=== PATIENT | female | born 1955 | race Caucasian/White ===

== ENCOUNTER 2023-12-19 04:45 | Emergency (ER) | payer MEDICARE, SELFPAY ==
[2023-12-19] VITALS (63 sets, daily range): BP systolic 138–232; BP diastolic 77–113; PULSE 69–90; RESP 15–31; TEMP 36.1–36.8; O2SAT 87–98
--- NOTE | ~2023-12-19 | CT_ITS ---
EXAMINATION: CT brain wo con DATE: 12/19/2023 04:59 INDICATION: Left-sided weakness. History of stroke. TECHNIQUE: Computed tomography (CT) of the head was performed without intravenous contrast. The mA wa s adjusted according to patient size. Iterative reconstruction technique was employed. Exam dose: 83 2.33 mGy-cm total exam DLP. COMPARISON: None FINDINGS: Examination is limited at the posterior fossa by extensive streak artifact from tooth filli ngs. No intracranial mass lesion or hemorrhage or cerebrovascular accident is evident. No midline aman ft or mass effect. There is nonspecific diminished attenuation of the cerebral white matter, likely due to chronic small vessel ischemic changes. No subdural or epidural hematoma. There is soft tissue thickening in the left frontoethmoid area and patchy soft tissue thickening in t he ethmoid air cells. The paranasal sinuses and mastoid air cells otherwise are unremarkable. No fracture or bone destruction of the cranial vault. IMPRESSION: Limited examination; no acute intracranial finding Reviewed, dictated and finalized at [facility]. Reviewed, dictated and finalized at [facility].
--- NOTE | ~2023-12-19 | XR_ITS ---
XR chest 1V portable DATE: 12/19/2023 05:37 INDICATION: Left-sided weakness TECHNIQUE: Portable supine AP view on 12/19/2023 at 0544 hours COMPARISON: None FINDINGS: Heart size appears within normal range. There is aortic calcification, ectasia and unfoldin g. No hilar or mediastinal enlargement. No pulmonary infiltrate or consolidation, pleural effusion or pulmonary vascular congestion or pneumo thorax is detected. Mild bilateral apical capping. IMPRESSION: No active cardiopulmonary disease Reviewed, dictated and finalized at location [facility].
--- NOTE | ~2023-12-19 | CT_ITS ---
EXAMINATION: CTA brain carotid DATE: 12/19/2023 06:24 INDICATION: Left hemiparesis. TECHNIQUE: Computed tomographic angiography (CTA) of the head was performed with 100 mL Omnipaque-350 intravenous contrast. CTA of the neck was performed with intravenous contrast. Automated exposure co ntrol and iterative reconstruction technique were employed. The dose-length product was 1208.84 mGy-c m. Maximum intensity projection and volume rendered 3D-reconstructions were created by the technologi st on a separate workstation. COMPARISON: Head CT 12/19/2023 FINDINGS: HEAD CTA: There are scattered areas of low attenuation in the cerebral white matter. There is no intr acranial hemorrhage, acute infarction, or abnormal intracranial mass lesion. The ventricles are amara l in size. The orbits are normal. There is mild mucosal thickening in the paranasal sinuses. The mast oid air cells are normal. The vertebral arteries are codominant. There is no significant stenosis of basilar artery or the posterior cerebral arteries. The posterior communicating arteries are normal. T here is no significant stenosis of the intracranial internal carotid arteries or anterior or middle c erebral arteries. Anterior communicating artery is normal. There is no aneurysm. NECK CTA: Calcified left lung nodules and calcified left hilar lymph nodes are consistent with old gr anulomatous disease. There is mild scarring at the lung apices. There are no pathologically enlarged lymph nodes. There is no significant stenosis of the vertebral arteries. There is mild plaque in the proximal internal carotid arteries. There is 0% stenosis of the proximal right internal carotid arter y relative to normal distal artery lumen diameter (NASCET criteria). There is 0% stenosis of the prox imal left internal carotid artery relative to normal distal artery lumen diameter. There is motion ar tifact involving brachiocephalic trunk. There is severe cervical spondylosis. IMPRESSION: 1. Moderate nonspecific cerebral white matter disease, which likely represents chronic small vessel i schemic disease. 2. No aneurysm or significant intracranial canal stenosis. 3. 0% stenosis of the proximal internal carotid arteries relative to normal distal artery lumen diame ters (NASCET criteria). Reviewed, dictated and finalized at location E. IMPRESSION: 1. Moderate nonspecific cerebral white matter disease, which likely represents chronic small vessel ischemic disease. 2. No aneurysm or significant intracranial canal stenosis. 3. 0% stenosis of the proximal internal carotid arteries relative to normal dis polo artery lumen diameters (NASCET criteria).
--- NOTE | 2023-12-19 04:53 | ECG_ITS ---
[address] Test Date: 2023-12-19 Pat Name: Caitlyn Alberto Department: Room: Gender: F Control Officer: BIANKA : 1955 Requested By: Corbin Mittal Order Number: [id number] Reading MD: Kisha Brock M.D. Measurements Intervals [place] Rate: 85 P: 72 CA: 185 QRS: 71 QRSD: 113 T: 70 QT: 407 QTc: 486 Interpretive Statements SINUS RHYTHM POSSIBLE LEFT ATRIAL ENLARGEMENT [-0.1mV P-WAVE IN V1/V2] INCOMPLETE RIGHT BUNDLE BRANCH BLOCK [90+ ms QRS DURATION, TERMINAL R IN V1/V2, 40+ ms S IN I/aVL/V4/V5/V6] MODERATE ST DEPRESSION [0.05+ mV ST DEPRESSION] No previous ECG available for comparison Electronically Signed On 12-22-2023 14:10:48 CDT by Kisha Brock M.D.
--- NOTE | 2023-12-19 04:55 | PC.NURSE ---
patient returned to the room via stretcher. daughter at the bedside
--- NOTE | 2023-12-19 05:05 | ED.NEUROSD ---
HPI - Neuro Symptoms/Deficit General Chief Complaint: Neuro Symptoms/Deficit <Corbin Nettles MD - Last Filed: 12/19/23 09:23> Stated Complaint: Stroke Symptoms <Corbin Nettles MD - Last Filed: 12/19/23 09:23> Time Seen by Provider: 12/19/23 04:53 <Corbin Nettles MD - Last Filed: 12/19/23 09:23> Source: patient, family and EMS <Corbin Nettles MD - Last Filed: 12/19/23 09:23> Mode of arrival: EMS <Corbin Nettles MD - Last Filed: 12/19/23 09:23> Limitations: clinical condition <Corbin Nettles MD - Last Filed: 12/19/23 09:23> History of Present Illness HPI Narrative: patient is a 68-year-old female with a stroke 1 month ago with unclear intervention. This stroke affected her left side with minimal residual. She presents with last known well at 2:30 a.m. this morning taking a shower and then proceeded to collapse on her bed with twitching. Last known well 2:30 a.m.. Family knew that she went and took a shower on her own without difficulty. Somewhere after the shower she became difficulty with motor and sensory. EMS was called and she was brought to the ER. CT head was done and no acute process seen. NIH score upon entry is 9. GCS is 14. Family would like her to go to [facility] and we will call and talk to the neurologist at this time. The only abnormality that is relative contraindication is her shaking like activity but she is awake during the event and it is not a seizure witnessed. She initially had left face weakness that has resolved at this time but the left upper and lower extremity are significantly diminished. There is a discussion about her having a seizure medication which I do not see in her bag of medicine as well as a blood thinner after her stroke. First documentation about tPA and the patient had a stroke 1 month ago which is less than 90 days and that is a absolute contraindication for tPA. She also has very very high blood pressure and we are working on that at this time but it is also a contraindication. Further she is on a blood thinner that she has not brought at this time and we are not aware of which blood thinner she is taking. I discussed the case with Neurology senior resident at [facility] and we agreed together that this is not a candidate for tPA due to all these factors. They wanted a CTA of the head and neck which we will do to look for large vessel occlusion or LVO to consider thrombectomy. If the CTA is negative, then the patient will need routine stroke rehabilitation. If it is positive then we will transfer to [place] for thrombectomy considerations. <Corbin Nettles MD - Last Filed: 12/19/23 09:23> Onset (ago): hour(s) (3) <Corbin Nettles MD - Last Filed: 12/19/23 09:23> Timing confirmed by: family member <Corbin Nettles MD - Last Filed: 12/19/23 09:23> Location: speech, left face, dysarthria, left arm, left leg and altered <Corbin Nettles MD - Last Filed: 12/19/23 09:23> History of same: Yes <Corbin Nettles MD - Last Filed: 12/19/23 09:23> Severity: moderate <Corbin Nettles MD - Last Filed: 12/19/23 09:23> Quality: weak <Corbin Nettles MD - Last Filed: 12/19/23 09:23> Relieving factors: none <Corbin Nettles MD - Last Filed: 12/19/23 09:23> Exacerbating factors: none <Corbin Nettles MD - Last Filed: 12/19/23 09:23> Context: sudden onset <Corbin Nettles MD - Last Filed: 12/19/23 09:23> On Anticoagulants: No ( Unknown blood thinner from last CVA Plavix?) <Corbin Nettles MD - Last Filed: 12/19/23 09:23> Associated symptoms: confusion, seizures and weakness <Corbin Nettles MD - Last Filed: 12/19/23 09:23> Treatments Prior to Arrival: none <Corbin Nettles MD - Last Filed: 12/19/23 09:23> Related Data Allergies/Adverse Reactions: Allergies Allergy/AdvReac Type Severity Reaction Status Date / Time No Known Allergi
[2023-12-19] MEDS: LABETALOL HCL INJ 100 MG/20 ML VIAL 10 MG IV PUSH ×2 (05:10→05:33)
[2023-12-19 05:12] LABS: Basophils Absolute Auto 0.06 K/mm3 (0.00-0.10); Basophils Percent Auto 0.3 % (0.0-1.0); Eosinophils Absolute Auto 0.15 K/mm3 (0.02-0.50); Eosinophils Percent Auto 0.8 % (1.0-6.0); Hematocrit 41.1 % (35.0-42.0); Hemoglobin 13.5 g/dL (11.7-13.8); Immature Granulocyte Absolute 0.16 K/mm3 (0.00-0.00); Immature Granulocyte Percent A 0.9 % (0.0-0.0); Lymphocytes Absolute Auto 3.34 K/mm3 (1.10-4.50); Lymphocytes Percent Auto 18.7 % (18.0-42.0); Mean Corpuscular HGB Conc 32.8 g/dL (32-36); Mean Corpuscular Hemoglobin 30.7 pg (27.0-31.0); Mean Corpuscular Volume 93.4 fL (78.0-102.0); Mean Platelet Volume 10.7 fl (9.2-11.8); Monocytes Absolute Auto 0.84 K/mm3 (0.10-0.90); Monocytes Percent Auto 4.7 % (2.0-11.0); Neutrophils Absolute Auto 13.34 K/mm3 (1.70-7.20); Neutrophils Percent Auto 74.6 % (50.0-70.0); Platelet Count Result 366 K/mm3 (150-420); Red Cell Distribution Width 12.9 % (11.6-14.4); White Blood Count 17.9 K/mm3 (4.8-10.8)
[2023-12-19 05:25] LABS: Partial Thromboplastin Time 25.8 Sec (23.9-30.70)
[2023-12-19 05:29] LABS: Alanine Aminotransferase 19 U/L (14-59); Albumin Level 3.8 g/dL (3.4-5.0); Alkaline Phosphatase 101 U/L (46-116); Anion Gap 10 mmol/L (4-12); Aspartate Amino Transferase 20 U/L (15-37); Bilirubin,Total 0.5 mg/dL (0.00-1.00); Blood Urea Nitrogen 6 mg/dL (7-18); Calcium 9.3 mg/dL (8.5-10.1); Carbon Dioxide 29 mmol/L (21-32); Chloride 97 mmol/L (98-108); Estimated CRCL calculation 56 ml/min; Estimated Glomerular Filt Rate > 60; Glucose 159 mg/dL (70-99); Osmolality Calculated 282 mOsm/kg (285-295); Potassium 3.1 mmol/L (3.5-5.1); Sodium 136 mmol/L (136-145); Total Protein 7.7 g/dL (6.4-8.2); Troponin I 5.4 ng/L (0.00-60.4)
--- NOTE | 2023-12-19 05:30 | PC.NURSE ---
NIH stroke scale completed by ERP. Pt scored 9, family requests transfer to [place], call placed to [place] stroke team.
[2023-12-19] MEDS: niCARdipine 20 MG/200 ML 20 MG/200 ML BAG 50 MG IV CONT (05:46)
--- NOTE | 2023-12-19 06:07 | PC.NURSE ---
patient transported to ct via stretcher
--- NOTE | 2023-12-19 07:15 | PC.NURSE ---
ERP Dr Nettles spoke c pts daughter and POC discussed for neurology transfer. No intervention will be done per [facility] stroke team Pts daughter wants transfer to [facility] neurology for admit.
--- NOTE | 2023-12-19 07:17 | PC.NURSE ---
Report given to Russ Schwartz. Pt resting, VSS NSR on monitor.
--- NOTE | 2023-12-19 07:29 | PC.NURSE ---
0710 report from jamir nino. resumed care at this time. daughter chuck going to run errands. introduced self to pt. pt able to speak clearly, tell me her name, denies any pain. able to tell me # of raised fingers accurately. call west in reach,m ice chip x1 to wet mouth . tolerated well.
[2023-12-19 07:59] LABS: Appearance Urine Clear (Clear); Bilirubin Urine Negative (Negative); Blood Urine Negative (Negative); Color Urine Light Yellow (Yellow); Glucose Urine UA Negative (Negative); Ketones Urine Negative (Negative); Leukocyte Esterase Ur Negative LEU/UL (Negative); Nitrate Urine Negative (Negative); Protein Urine Negative (Negative); Specific Grav Ur <= 1.005 (1.010-1.020); Urobilinogen Urine 0.2 mg/dL (0.2-1.0)
[2023-12-19 08:01] LABS: Add Urine Microscopic? NO
--- NOTE | 2023-12-19 08:02 | PC.NURSE ---
pt sleeping at this time. respirations even and unlabored.
[2023-12-19] MEDS: ASPIRIN 81 MG CHEWABLE TABLET PO (08:19)
[2023-12-19] MEDS: levETIRAcetam 1000MG/NACL100ML 1,000 MG/100 ML BAG 400 MG IVPB (08:22)
[2023-12-19] MEDS: KCL 20 MEQ/SW 100 ML 100 ML 50 MEQ IVPB (08:23)
[2023-12-19] MEDS: SODIUM CHLORIDE 0.9% IV 1,000 ML 150 ML IV CONT (08:24)
--- NOTE | 2023-12-19 08:57 | PC.NURSE ---
pt alert, visit from brother deisy gonsalves. pt speaking clearly. has had improvement with movement to left arm and left leg. new nihss scale completed
--- NOTE | 2023-12-19 11:52 | PC.NURSE ---
Addendum entered by Efren Healy RN 12/19/23 11:56: complete note below: call to [facility] bed placement cancelled. spoke with maren Original Note: call to [facility] transfer center, spoke with delfina, bed placement at [facility] cancelled. call to [facility] transfer center, spoke with maren, bed placement at [facility]
--- NOTE | 2023-12-19 11:57 | PC.NURSE ---
daughter, chuck notified of pt departure to [place] and bed assignment.
== END 2023-12-19 11:51 | disposition short-term general hospital (02) ==
PROVIDERS: Emergency Medicine; Emergency Provider Internal Medicine Critical Care Medicine
DX: I63.9 Cerebral infarction, unspecified (principal); R29.711 NIHSS score 11; D72.829 Elevated white blood cell count, unspecified; I16.0 Hypertensive urgency; G40.909 Epilepsy, unspecified, not intractable, without status epilepticus; Z86.73 Personal history of transient ischemic attack (TIA), and cerebral infarction without residual deficits
CPT/HCPCS: 36415; 70450; 70496; 70498; 71045; 80053; 81003; 84484; 85025; 85610; 85730; 93005; 96365; 96366; 96367; 96368; 96375; 99285; A9270; J1953; J2404; J3480; J7030; Q9967

== ENCOUNTER 2023-12-19 13:12 | Inpatient (IN) | payer OTHER, SELFPAY ==
--- NOTE | ~2023-12-19 | XR_ITS ---
EXAMINATION: XR femur RT min 2V DATE: 12/21/2023 13:30 INDICATION: Foreign body. MRI clearance. TECHNIQUE: 2 views of right femur on 4 radiographs were obtained. COMPARISON: None. FINDINGS: Bone alignment is normal. No fracture. There is mild knee joint osteoarthritis. No knee elizabeth nt effusion. IMPRESSION: 1. No radiopaque foreign body. Reviewed, dictated and finalized at [facility].
--- NOTE | ~2023-12-19 | XR_ITS ---
EXAMINATION: XR patella LT DATE: 12/21/2023 13:30 INDICATION: Foreign body. MRI clearance. TECHNIQUE: 2 views of left patella were obtained. COMPARISON: None. FINDINGS: Bone alignment is normal. No fracture. There is mild osteoarthritis of patellofemoral senait rtment. No knee joint effusion. IMPRESSION: 1. No radiopaque foreign body. Reviewed, dictated and finalized at location [facility].
--- NOTE | ~2023-12-19 | XR_ITS ---
EXAMINATION: XR tibia fibula LT 2V DATE: 12/21/2023 13:30 INDICATION: Foreign body. MRI clearance. TECHNIQUE: 2 views of left tibia and fibula were obtained. COMPARISON: None. FINDINGS: Bone alignment is normal. No fracture. There is mild left knee osteoarthritis. IMPRESSION: 1. No radiopaque foreign body. Reviewed, dictated and finalized at location [facility].
--- NOTE | ~2023-12-19 | XR_ITS ---
EXAMINATION: XR femur LT min 2V DATE: 12/21/2023 13:30 INDICATION: Foreign body. MRI clearance. TECHNIQUE: 2 views of left femur on 4 radiographs were obtained. COMPARISON: None. FINDINGS: Bone alignment is normal. No fracture. There is mild osteoarthritis of patellofemoral senait rtment of left knee. No knee joint effusion. IMPRESSION: 1. No radiopaque foreign body. Reviewed, dictated and finalized at location [facility].
--- NOTE | ~2023-12-19 | XR_ITS ---
EXAMINATION: XR tibia fibula RT 2V DATE: 12/21/2023 13:30 INDICATION: Foreign body. MRI clearance. TECHNIQUE: 2 views of right tibia and fibula were obtained. COMPARISON: None. FINDINGS: Bone alignment is normal. No fracture. There is mild right knee osteoarthritis. IMPRESSION: 1. No radiopaque foreign body. Reviewed, dictated and finalized at location [facility].
--- NOTE | ~2023-12-19 | XR_ITS ---
EXAMINATION: XR patella RT DATE: 12/21/2023 13:30 INDICATION: Foreign body. MRI clearance. TECHNIQUE: 2 views of right patella were obtained. COMPARISON: None. FINDINGS: Bone alignment is normal. No fracture. There is mild osteoarthritis of patellofemoral senait rtment. No knee joint effusion. IMPRESSION: 1. No radiopaque foreign body. Reviewed, dictated and finalized at location [facility].
--- NOTE | ~2023-12-19 | MR_ITS ---
EXAMINATION: MR brain/brain stem wo con DATE: 12/21/2023 15:38 INDICATION: Right-sided cerebrovascular accident. TECHNIQUE: Magnetic resonance imaging (MRI) of the brain and brainstem was performed without intraven ous contrast. COMPARISON: Head CT 12/19/2023 FINDINGS: There are scattered areas of nonspecific increased T2-weighted signal intensity in the cere bral white matter and loyda. There is no intracranial hemorrhage, acute infarction, or abnormal intrac ranial mass lesion. The ventricles are normal in size. The orbits are normal. There is mild mucosal t hickening in the paranasal sinuses. The mastoid air cells are normal. IMPRESSION: 1. Moderate nonspecific cerebral white matter disease and pontine disease, which likely represents ch ronic small vessel ischemic disease. Reviewed, dictated and finalized at location [facility]. IMPRESSION: 1. Moderate nonspecific cerebral white matter disease and pontine disease, whic h likely represents chronic small vessel ischemic disease.
--- NOTE | ~2023-12-19 | XR_ITS ---
Portable chest x-ray Comparison: 12/19/2023 Clinical History: Hyponatremia Findings: Calcified left midlung granuloma present. Lungs are otherwise clear. Possible COPD. Cardi omediastinal silhouette is stable. Bones and soft tissues are unremarkable. Impression: No acute abnormality evident. Suspected COPD. Reviewed, dictated and finalized at location . Impression: No acute abnormality evident. Suspected COPD.
[2023-12-19 12:43] VITALS: BP 173/83; PULSE 76; RESP 20; TEMP 36.1; O2SAT 93
--- NOTE | 2023-12-19 13:28 | PM.IMHP ---
H&P: HPI History of Present Illness Date/Time: 12/19/23 13:30 Chief Complaint: Stroke. Narrative: This is a 68-year-old female with ischemic stroke last month with minimal residual left-sided weakness, seizures, and hypertension who is being directly admitted to the telemetry floor from the emergency department at the [facility] for neurology consultation due to concerns for stroke. She was seen last in her usual state of health at about 02:30 before she went to take a shower. Later family members found her lying in the position in bed with garbled speech and left-sided weakness with occasional twitching on the left side. On arrival to the ED at 06:30 her NIH stroke score was 11 (unable to answer both questions, gaze palsy, left upper extremity drift, left lower extremity unable to resist gravity, dysarthria, moderate aphasia, and partial neglect). Blood pressure was as high as 224/101 for which she received IV labetalol x2 with improvement. ED physician spoke with the stroke team at [place] and it was decided that she would not be a candidate for tPA given recent ischemic stroke within last month. CTA of the head and neck did not show evidence of stroke and there was no large vessel occlusion. Transfer was initiated to [place] for neurology consultation. NIH stroke score was 9 at the time of transfer. Her symptoms continue to improve any only complaint she has at the time my evaluation is of a slight headache. Left-sided weakness is now similar to that she has experienced since her stroke last month.She denies vertigo, vision changes, facial droop, difficulty swallowing, chest pain, palpitations, and sensations of racing heart. Review of Systems Review of Systems: 12 systems were reviewed and are negative except for as per HPI. [facility] Past Medical History Medical History (Updated 12/19/23 @ 22:30 by Bethany Watson PA-C) Arthritis Hypertension Ischemic stroke Seizure disorder Social History Social History (Updated 12/19/23 @ 22:23 by Bethany Watson PA-C) Social History: Surrogate medical decision maker: Imani Penn, daughter. Code status: Full code. Smoking status: Never smoker Alcohol intake: former Substance use: former Substance use type: does not use Last use: 7 months ago Do You Feel Safe in your Home?: Yes Lack of Transportation: No Lack of Food: Never True Current Housing: I Have Housing Concerned About Future Housing: No Difficulty Paying Gas/Electric Bills: No Difficulty Paying for Meds: No Currently Unemployed: No Education: High School Diploma/GED Difficulty w/ Childcare or Family Care: No Spiritual care concerns: No Meds Home Medications and Allergies Home Medications Medication Instructions Recorded Confirmed Type aripiprazole 2 mg tablet 2 mg PO DAILY 12/19/23 12/19/23 History atorvastatin 40 mg tablet 40 mg PO DAILY 12/19/23 12/19/23 History fluoxetine 10 mg capsule 10 mg PO DAILY 12/19/23 12/19/23 History fluoxetine 20 mg capsule 20 mg PO DAILY 12/19/23 12/19/23 History levetiracetam 500 mg tablet 500 mg PO BID 12/19/23 12/19/23 History levothyroxine 88 mcg tablet 88 mcg PO DAILY 12/19/23 12/19/23 History lisinopril 20 mg tablet 20 mg PO DAILY 12/19/23 12/19/23 History metoprolol succinate 25 mg 20 mg PO BID 12/19/23 12/19/23 History tablet,extended release 24 hr naltrexone 50 mg tablet 75 mg PO DAILY 12/19/23 12/19/23 History Allergies Allergy/AdvReac Type Severity Reaction Status Date / Time No Known Allergies Allergy Verified 12/19/23 05:29 Exam Narrative: General: Nontoxic-appearing female in the semi-Beltran position in bed. Weight: 57.2 kg. BMI: 20.4. HEENT: Normocephalic, atraumatic. PERRL, EOMI. Sclera anicteric. Conjunctiva mildly injected. Oral mucosa moist. Neck: Supple. No carotid bruits. Respiratory: Lungs are clear to auscultation bilaterally. Cardiovascular: Regular rate and rhythm with
[2023-12-19 13:42] VITALS: BMI 20.3
[2023-12-19 15:01] LABS: Anion Gap 10 mmol/L (4-12); Blood Urea Nitrogen 5 mg/dL (7-17); Calcium 8.9 mg/dL (8.4-10.2); Carbon Dioxide 26 mmol/L (22-30); Chloride 96 mmol/L (98-107); Estimated CRCL calculation 96 ml/min; Estimated Glomerular Filt Rate > 60; Glucose 119 mg/dL (65-110); Magnesium 1.3 mg/dL (1.6-2.3); Potassium 3.1 mmol/L (3.4-5.0); Sodium 132 mmol/L (137-145)
--- NOTE | 2023-12-19 15:14 | WPDNEURCNPN ---
Assessment and Plan Assessment and plan (1) Cerebrovascular accident: Qualifiers: CVA mechanism: unspecified Qualified Code(s): I63.9 - Cerebral infarction, unspecified Code(s): I63.9 - Cerebral infarction, unspecified Status: Acute (2) Seizure disorder: Code(s): G40.909 - Epilepsy, unspecified, not intractable, without status epilepticus Status: Acute Plan 1. Status post right hemispheric stroke about a month ago with residual left-sided neurological signs but patient had been on multiple medications which include airy pupils old 2mg daily, atorvastatin 40mg daily, fluoxetine 10mg daily, and 20mg daily, levetiracetam 500mg p.o. b.i.d. levothyroxine 88mcg daily lisinopril 20mg daily metoprolol 25mg daily and naltrexone 50mg tablet 75mg daily, considering he CTA does not show any major vessel involvement, no aneurysm or significant intracranial stenosis I will put her on aspirin 81mg daily, 2. Considering the remote possibility of the seizure which is also likely as the initial description was given levetiracetam 500mg twice a day can be continued while she is here with seizure precautions. 3. Question has been raised by the radiologist bandlike flap in the proximal right brachiocephalic artery which reflects possible artifact from contrast versus focal dissection needs to be clarified late room if necessary we can repeat the CTA. 4. Possibility of unwitnessed seizure is likely but patient is already taking Keppra while here we can carry out the seizure precautions and if necessary we can give her extra Keppra that is 750mg b.i.d. 5. MRI cannot be done because of the alcohol monitoring brace family is trying to approach them take that of because it was placed in the different state 6. I have advised the family she is not in any emergency right now but definitely if we have to get the MRI that needs to be pursued further. Consult date: 12/19/23 HPI: Caitlyn Alberto is a 68 year old female Admitted to the hospital on transfer from other institutions with information that she had a stroke about a month ago which affected the left side of her body , when she ended up having a tPA but then she presented to the hospital with information that while she was taking a shower she collapsed and was noted to have twitching in her bed. This time she she last known well was around 2:30 a.m. family was aware that she went and took a shower on her own without difficulties but after the shower she has some difficulties with the sensory and motor function EMS were called to the scene she was brought to the ER and CT scan of the head was done which was negative for the bleed or any major stroke her NIH score upon entry was 9 GCS was 14 family wanted her to go to [facility] to be seen by the neurologist there there was no history of witnessed seizure and there was a question raised about the medication for the control of the seizure when she had a stroke about a month ago she did receive tPA and obviously this is a contraindication for the end of the tPA within [id number]? she was also noted to have very high blood pressure and she was also on blood thinner and was not sure what blood thinner she was taking Pearl how all these discussion was made with the [facility] Neurology Service they wanted only CTA of the head and neck documented any large vessel involvement to consider thrombectomy but her CTA was negative and the suggested she will need the routine rehabilitation consideration was given to the possibility of a focal seizure core the documented recent stroke patient is already receiving the Keppra. To complicate all the situation she has a monitor on her leg which was placed out of the state for the possibility of the drinking monitoring. She is not allergic to any medications PMFSH Past Medical History Medical History (Updated 12/19/23 @ 14:13 by Bethany Watson PA-C) Arthritis Hypertension Status post tPA
[2023-12-19 15:27] VITALS: BP 164/79; PULSE 70; RESP 18; TEMP 36.2; O2SAT 98
[2023-12-19 15:32] LABS: Hemoglobin A1C 5.4 % (<5.7)
[2023-12-19] MEDS: FLUoxetine HCL 10 MG CAPSULE PO (15:32)
[2023-12-19] MEDS: FLUoxetine HCL 20 MG CAPSULE PO (15:32)
[2023-12-19] MEDS: ATORVASTATIN 40 MG TABLET PO (15:32)
[2023-12-19] MEDS: ARIPiprazole 2 MG TABLET PO (15:32)
[2023-12-19 16:00] VITALS: PULSE 70
[2023-12-19 19:56] VITALS: BP 149/70; PULSE 66; RESP 20; TEMP 36.8; O2SAT 99
[2023-12-19 20:00] VITALS: PULSE 66; RESP 20; O2SAT 99
[2023-12-19] MEDS: ACETAMINOPHEN 325 MG TABLET 650 MG PO ×2 (20:31→23:43)
[2023-12-19] MEDS: levETIRAcetam Tablet 250 MG, levETIRAcetam Tablet 500 MG 750 MG PO (20:32)
[2023-12-19 21:03] LABS: Glucose Point of Care 128 mg/dl (65-105)
[2023-12-19 23:29] VITALS: BP 187/83; PULSE 65; RESP 18; TEMP 36.3; O2SAT 98
[2023-12-19] MEDS: SODIUM CHLORIDE 0.9% IV 1,000 ML 100 ML IV CONT (23:43)
[2023-12-19] MEDS: POTASSIUM CHLORIDE 20 MEQ ER TABLET 40 MEQ PO (23:44)
[2023-12-19] MEDS: MAGNESIUM SULF 2 GM/WATER 50ML 2 GM/50 ML BAG IVPB (23:44)
[2023-12-20] VITALS (10 sets, daily range): BP systolic 140–193; BP diastolic 65–85; PULSE 57–78; RESP 16–20; TEMP 36.7–37.1; O2SAT 96–99
[2023-12-20 05:24] LABS: Hemoglobin 13.1 g/dL (12.0-15.0); Mean Corpuscular HGB Conc 33.6 g/dl (32-36); Mean Corpuscular Volume 92.4 fl (80-100); Mean Platelet Volume 10.8 fl (7.4-10.4); Platelet Count Result 356 k/mm3 (150-375); Red Blood Count 4.22 M/mm3 (4.2-5.4); Red Cell Distribution Width 13.1 % (11.5-14.5); White Blood Count 22.7 K/mm3 (4.5-10.0)
[2023-12-20 05:41] LABS: Anion Gap 6 mmol/L (4-12); Blood Urea Nitrogen 11 mg/dL (7-17); Calcium 9.2 mg/dL (8.4-10.2); Carbon Dioxide 28 mmol/L (22-30); Chloride 96 mmol/L (98-107); Estimated CRCL calculation 79 ml/min; Estimated Glomerular Filt Rate > 60; Glucose 112 mg/dL (65-110); Magnesium 2.2 mg/dL (1.6-2.3); Potassium 3.4 mmol/L (3.4-5.0); Sodium 130 mmol/L (137-145)
[2023-12-20] MEDS: LEVOTHYROXINE SODIUM 88 MCG TABLET PO (06:02)
[2023-12-20] MEDS: ATORVASTATIN 40 MG TABLET PO (10:12)
[2023-12-20] MEDS: ARIPiprazole 2 MG TABLET PO (10:12)
[2023-12-20] MEDS: ACETAMINOPHEN 325 MG TABLET 650 MG PO ×2 (10:12→20:43)
[2023-12-20] MEDS: ASPIRIN 81 MG ENTERIC TABLET PO (10:13)
[2023-12-20] MEDS: lisinopriL 20 MG TABLET PO (10:13)
[2023-12-20] MEDS: levETIRAcetam Tablet 250 MG, levETIRAcetam Tablet 500 MG 750 MG PO ×2 (10:13→20:43)
[2023-12-20] MEDS: FLUoxetine HCL 10 MG CAPSULE PO (10:13)
[2023-12-20] MEDS: FLUoxetine HCL 20 MG CAPSULE PO (10:14)
--- NOTE | 2023-12-20 14:01 | PM.IMPN ---
Progress Note: A&P Assessment and Plan (1) Cerebrovascular accident: Qualifiers: CVA mechanism: unspecified Qualified Code(s): I63.9 - Cerebral infarction, unspecified Code(s): I63.9 - Cerebral infarction, unspecified Status: Inactive Assessment and Plan: Recently suffered ischemic stroke 1 month ago Presented with left-sided weakness and garbled speech. NIH scale on presentation 11 Case reviewed by ER physician with stroke team at [facility], not a candidate for tPA given recent ischemic stroke Head CT with no acute findings and CTA with patent carotid arteries MRI has been ordered but not able to be performed at this time as she has an ankle monitor on. This was placed in [place] and family will be attempting to reach out for permission to remove on Thursday Appreciate neurology consultation and recommendations Continue aspirin 81 mg daily Check lipid panel and A1c May need to complete echocardiogram for further eval. Records from recent hospitalization 1 month ago been requested and will review once available (2) Seizure disorder: Code(s): G40.909 - Epilepsy, unspecified, not intractable, without status epilepticus Status: Inactive Assessment and Plan: Continue Keppra 750 mg b.i.d. Continue seizure precautions (3) Electrolyte abnormality: Code(s): E87.8 - Other disorders of electrolyte and fluid balance, not elsewhere classified Status: Acute Assessment and Plan: Potassium normalized with supplementation, 3.4 today. She is eating well Magnesium has normalized with supplementation, 2.2 today Monitor BMP (4) Hypertension: Code(s): I10 - Essential (primary) hypertension Status: Acute Assessment and Plan: Blood pressure is markedly elevated on presentation however permissive hypertension allowed in setting of possible acute stroke Lisinopril and metoprolol have been resumed Monitor BP trends closely (5) Hyperglycemia: Code(s): R73.9 - Hyperglycemia, unspecified Status: Acute Assessment and Plan: Glucose elevated presentation at 159 She has no history of diabetes Will obtain A1c (6) Leukocytosis: Qualifiers: Leukocytosis type: unspecified Qualified Code(s): D72.829 - Elevated white blood cell count, unspecified Code(s): D72.829 - Elevated white blood cell count, unspecified Status: Inactive Assessment and Plan: WBC on presentation 17.9. His increased to 22.7 today She is afebrile and has no symptoms of acute infection CXR unremarkable UA without concerns for infection May be reactive elevation. Continue to monitor CBC with differential Subjective Date/time seen: 12/20/23 14:01 Interval history: This has been care for Caitlyn today. Her family is present at the bedside. She reports that she is feeling improved today. She does complain of nausea and some dizziness. States that she had a headache this morning that resolved with Tylenol. She denies any visual deficits. She has noticed that her speech is slower and she feels she has a harder time coming up with the word she wants to say. She denies any difficulty swallowing. She does report left-sided weakness in her upper and lower extremity which she believes is improving. She was able to go for a walk today using a walker. She did report feeling unsteady but was able to do this without much difficulty. She is tolerating her diet well. Denies fever or chills. She denies shortness breath, cough, chest pain. Reports regular bowel movements. Doing well with her catheter and reports no concerns. Denies any urinary symptoms prior to James placement. Review of Systems Review of Systems: All systems reviewed & are unremarkable except as noted in HPI and below Exam Narrative: General: Well-nourished, well-appearing 68-year-old female, sitting up in bed, comfortable, NARD Neuro: CN II-XII intact, streng
--- NOTE | 2023-12-20 16:39 | PC.NURSE ---
PT is in confidential status. Spoke with patient alone 16:35 to confirm she wishes no family not currently present be given any information on her where abouts or care. Patient is Alert and oriented and wishes to remain confidential.
[2023-12-20] MEDS: hydrALAZINE HCL 20 MG/ML VIAL 10 MG IV PUSH (17:13)
[2023-12-21] VITALS (11 sets, daily range): BP systolic 147–179; BP diastolic 72–96; PULSE 66–79; RESP 14–20; TEMP 36.5–36.9; O2SAT 97–99; BMI 20.3
[2023-12-21] MEDS: ACETAMINOPHEN 325 MG TABLET 650 MG PO ×3 (02:50→20:30)
[2023-12-21 05:07] LABS: Basophils Percent Auto 0.1 % (0.2-1.2); Eosinophils Percent Auto 0.1 % (0-4.4); Hematocrit 41.3 % (37.0-47.0); Hemoglobin 14.1 g/dL (12.0-15.0); Immature Granulocyte Absolute 0.07 K/mm3 (0.00-0.031); Immature Granulocyte Percent A 0.7 % (0-0.5); Lymphocytes Absolute Auto 1.53 K/mm3 (0.9-3.2); Lymphocytes Percent Auto 15.5 % (18.3-44.2); Mean Corpuscular HGB Conc 34.1 g/dl (32-36); Mean Corpuscular Volume 90.8 fl (80-100); Mean Platelet Volume 10.8 fl (7.4-10.4); Monocytes Absolute Auto 1.1 K/mm3 (0.1-0.6); Monocytes Percent Auto 11.1 % (2.6-8.5); Neutrophils Absolute Auto 7.1 K/mm3 (1.3-6.7); Neutrophils Percent Auto 72.5 % (45.5-73.1); Platelet Count Result 359 k/mm3 (150-375); Red Blood Count 4.55 M/mm3 (4.2-5.4); Red Cell Distribution Width 12.9 % (11.5-14.5); White Blood Count 9.9 K/mm3 (4.5-10.0)
[2023-12-21] MEDS: LEVOTHYROXINE SODIUM 88 MCG TABLET PO (05:10)
[2023-12-21 05:26] LABS: Hemoglobin A1C 5.4 % (<5.7)
[2023-12-21 05:36] LABS: LDL Cholesterol Direct 61 mg/dL
[2023-12-21 05:38] LABS: Alanine Aminotransferase 15 U/L (6-35); Albumin Level 4.2 g/dL (3.5-5.1); Alkaline Phosphatase 95 U/L (38-126); Anion Gap 7 mmol/L (4-12); Aspartate Amino Transferase 26 U/L (14-36); Bilirubin,Total 0.8 mg/dL (0.2-1.3); Blood Urea Nitrogen 9 mg/dL (7-17); Carbon Dioxide 30 mmol/L (22-30); Chloride 88 mmol/L (98-107); Cholesterol 123 mg/dL (0-200); Estimated CRCL calculation 79 ml/min; Estimated Glomerular Filt Rate > 60; Glucose 125 mg/dL (65-110); HDL Direct 52 mg/dL; Sodium 125 mmol/L (137-145); Triglycerides 66 mg/dL (<150)
[2023-12-21] MEDS: hydrALAZINE HCL 20 MG/ML VIAL 10 MG IV PUSH ×2 (05:40→17:29)
[2023-12-21 05:44] LABS: Potassium 2.8 mmol/L (3.4-5.0)
[2023-12-21 06:38] LABS: Potassium 2.8 mmol/L (3.4-5.0)
[2023-12-21 07:27] LABS: Magnesium 1.4 mg/dL (1.6-2.3); Phosphorus 2.1 mg/dL (2.5-4.5)
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
[2023-12-21] MEDS: SODIUM CHLORIDE 0.9% IV 1,000 ML 100 ML IV CONT ×2 (08:31→20:29)
[2023-12-21] MEDS: ONDANSETRON INJ 4 MG/2 ML VIAL IV PUSH (08:31)
[2023-12-21] MEDS: POTASSIUM CHLORIDE INJ 40 MEQ in SODIUM CHLORIDE 0.9% IV 500 ML 130 MEQ IVPB (08:31)
--- NOTE | 2023-12-21 08:35 | PC.NURSE ---
pt wishes to take PO meds at this time, will take them after zofran begins to work
[2023-12-21] MEDS: ASPIRIN 81 MG ENTERIC TABLET PO (10:20)
[2023-12-21] MEDS: ATORVASTATIN 40 MG TABLET PO (10:21)
[2023-12-21] MEDS: FLUoxetine HCL 10 MG CAPSULE PO (10:21)
[2023-12-21] MEDS: ARIPiprazole 2 MG TABLET PO (10:21)
[2023-12-21] MEDS: METOPROLOL SUCCINATE EXT REL 25 MG TABCR PO ×2 (10:21→20:29)
[2023-12-21] MEDS: levETIRAcetam Tablet 250 MG, levETIRAcetam Tablet 500 MG 750 MG PO ×2 (10:22→20:29)
[2023-12-21] MEDS: lisinopriL 20 MG TABLET PO ×2 (10:22→15:48)
[2023-12-21] MEDS: MAGNESIUM OXIDE 400 MG TABLET PO (10:22)
[2023-12-21] MEDS: POTASSIUM CHLORIDE 20 MEQ ER TABLET 40 MEQ PO (10:23)
[2023-12-21] MEDS: FLUoxetine HCL 20 MG CAPSULE PO (10:24)
--- NOTE | 2023-12-21 10:40 | PC.NURSE ---
pt's brother came to visit pt and he at that time removed the ankle monitoring system from the pt, he gave the device to daughter Imani, she states pt's prosecuting attorney has OK'd the removal
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
--- NOTE | 2023-12-21 11:32 | PC.NURSE ---
pt took PO meds at this time with some crackers, daughter at bedside
[2023-12-21 11:53] LABS: Folic Acid 17.3 ng/mL (2.76->20)
[2023-12-21] MEDS: CALCIUM CARBONATE (TUMS) 500 MG (200 MG ELEMENTAL) PO (17:06)
--- NOTE | 2023-12-21 17:44 | WPDNEUROPN ---
Progress Note: A&P Assessment and Plan (1) Hypokalemia: Code(s): E87.6 - Hypokalemia Status: Acute Assessment and Plan: This is being addressed by the hospitalist team (2) Seizure disorder: Code(s): G40.909 - Epilepsy, unspecified, not intractable, without status epilepticus Status: Inactive Assessment and Plan: The patient is on Keppra 750 mg twice a day and should continue with his. The spell that brought her into the hospital raises possibility of either transient ischemic attack versus partial complex seizure or anxiety attack however description is far from being clear BS he has not had any further spells after admission here in fact feeling better the before. (3) Cerebrovascular accident: Qualifiers: CVA mechanism: unspecified Qualified Code(s): I63.9 - Cerebral infarction, unspecified Code(s): I63.9 - Cerebral infarction, unspecified Status: Inactive Assessment and Plan: Patient had a CVA with left side weakness approximately a month ago and has minimal finding on the left side as described above. Plan Continue antiplatelets and statin and Keppra at current doses and follow-up progress. If he has any further neurological event we will need to evaluate her. Subjective Date/time seen: 12/21/23 17:44 Interval history: The patient is 68 years old who had a stroke for 5 weeks ago and and was going through rehab. On the day of admission she thought that she was having another stroke. The description is that she did not feel right and she thought the left side also not working quite as well but she gives an indication this is somehow felt overwhelmed and could not decide what exactly was going on. The CT scan done head the hospital did not show any and new finding. MRI of the brain was performed today the findings also did not show evidence for new stroke. Review of Systems Review of Systems: Patient denies any specific symptoms. Upon asking she denies any headache or pain in her upper lower limbs or neck or lower back. Exam Narrative: The patient is alert and oriented but appears to have mild cognitive impairment and some difficulty in comprehending and following commands but overall seems to be doing fair no aphasia or dysarthria, cranial nerves on individual testing were intact, there is no significant facial asymmetry. Mild also rapid alternating movement of the left compared to right hand and also minimal finding on the left foot tapping. No other significant abnormalities. No involuntary movements noted. Objective Data Vital Signs Vital Signs: Vital Signs - 24 hr 12/20/23 18:12 12/20/23 19:52 12/20/23 20:00 Temperature 36.7 C 36.9 C Pulse Rate 78 78 74 Respiratory Rate 16 16 18 Blood Pressure 162/77 H 161/74 H Pulse Oximetry 98 98 96 Oxygen Delivery Room Air 12/20/23 20:00 12/21/23 00:00 12/21/23 00:00 Temperature 36.8 C Pulse Rate 75 78 77 Respiratory Rate 18 Blood Pressure 163/72 H Pulse Oximetry 97 Oxygen Delivery 12/21/23 04:00 12/21/23 05:05 12/21/23 06:57 Temperature 36.6 C Pulse Rate 79 76 Respiratory Rate 18 Blood Pressure 178/96 H 151/74 H Pulse Oximetry 98 Oxygen Delivery 12/21/23 08:00 12/21/23 08:29 12/21/23 10:21 Temperature 36.6 C Pulse Rate 78 74 74 Respiratory Rate 20 Blood Pressure 163/76 H Pulse Oximetry 97 Oxygen Delivery 12/21/23 12:00 12/21/23 12:00 12/21/23 16:00 Temperature 36.9 C Pulse Rate 66 73 72 Respiratory Rate 14 Blood Pressure 171/79 H Pulse Oximetry 97 Oxygen Delivery 12/21/23 17:28 Temperature Pulse Rate Respiratory Rate Blood Pressure 179/78 H Pulse Oximetry Oxygen Delivery Intake/Output Intake/Output: Intake & Output 12/18/23 12/19/23 12/20/23 12/21/23 23:59 23:59 23:59 23:59 Intake Total 1350 960 Output Total 9035 1025 1650 Balance -1300 418 -603 Meds/Results Medications: A
[2023-12-21 17:46] LABS: Potassium 3.7 mmol/L (3.4-5.0)
--- NOTE | 2023-12-21 20:09 | PC.NURSE ---
pt's daughter Imani has arrived to stay with pt ebonie, she has spoken with pt and the pt now states she wishes to go back in to confidential status, that process reviewed with pt and daughter
[2023-12-21] MEDS: ONDANSETRON HCL ODT 4 MG TABLET PO (20:29)
[2023-12-22] VITALS (9 sets, daily range): BP systolic 146–168; BP diastolic 65–86; PULSE 56–109; RESP 16–20; TEMP 36.2–37; O2SAT 94–99
[2023-12-22] MEDS: ACETAMINOPHEN 325 MG TABLET 650 MG PO ×3 (04:51→13:31)
[2023-12-22 06:47] LABS: Hematocrit 37.4 % (37.0-47.0); Hemoglobin 12.9 g/dL (12.0-15.0); Mean Corpuscular HGB Conc 34.5 g/dl (32-36); Mean Corpuscular Hemoglobin 31.1 pg (26-34); Mean Corpuscular Volume 90.1 fl (80-100); Mean Platelet Volume 10.7 fl (7.4-10.4); Platelet Count Result 348 k/mm3 (150-375); Red Blood Count 4.15 M/mm3 (4.2-5.4); Red Cell Distribution Width 12.8 % (11.5-14.5); White Blood Count 8.3 K/mm3 (4.5-10.0)
[2023-12-22] MEDS: LEVOTHYROXINE SODIUM 88 MCG TABLET PO (07:25)
[2023-12-22] MEDS: lisinopriL 20 MG TABLET 40 MG PO (08:18)
[2023-12-22] MEDS: levETIRAcetam Tablet 250 MG, levETIRAcetam Tablet 500 MG 750 MG PO ×2 (08:19→20:47)
[2023-12-22] MEDS: FLUoxetine HCL 10 MG CAPSULE PO (08:19)
[2023-12-22] MEDS: METOPROLOL SUCCINATE EXT REL 25 MG TABCR PO ×2 (08:19→20:48)
[2023-12-22] MEDS: MAGNESIUM OXIDE 400 MG TABLET PO (08:19)
[2023-12-22] MEDS: ASPIRIN 81 MG ENTERIC TABLET PO (08:19)
[2023-12-22] MEDS: ATORVASTATIN 40 MG TABLET PO (08:19)
[2023-12-22] MEDS: ARIPiprazole 2 MG TABLET PO (08:20)
[2023-12-22] MEDS: FLUoxetine HCL 20 MG CAPSULE PO (08:20)
[2023-12-22 08:51] LABS: Alanine Aminotransferase 16 U/L (6-35); Albumin Level 3.6 g/dL (3.5-5.1); Alkaline Phosphatase 78 U/L (38-126); Anion Gap 4 mmol/L (4-12); Aspartate Amino Transferase 27 U/L (14-36); Bilirubin,Total 0.8 mg/dL (0.2-1.3); Blood Urea Nitrogen 9 mg/dL (7-17); Calcium 8.8 mg/dL (8.4-10.2); Carbon Dioxide 27 mmol/L (22-30); Chloride 93 mmol/L (98-107); Estimated CRCL calculation 79 ml/min; Estimated Glomerular Filt Rate > 60; Glucose 108 mg/dL (65-110); Potassium 3.4 mmol/L (3.4-5.0); Sodium 124 mmol/L (137-145)
[2023-12-22 08:57] LABS: Immunoglobulin A 206 mg/dL (70-400); Immunoglobulin G 823 mg/dL (700-1600); Immunoglobulin M 91 mg/dL (40-230)
[2023-12-22 09:18] LABS: Free T4 Free Thyroxine Reflex 1.09 ng/dL (0.78-2.19)
[2023-12-22 09:56] LABS: Folic Acid 16.9 ng/mL (2.76->20)
[2023-12-22 13:14] LABS: Total Triiodothyronine (T3) 0.62 NG/ML (0.97-1.69)
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
[2023-12-22 20:46] LABS: Sodium Urine Random 92 meq/L
[2023-12-23] VITALS (11 sets, daily range): BP systolic 148–166; BP diastolic 71–95; PULSE 54–68; RESP 16–18; TEMP 36.7–36.9; O2SAT 97–98
[2023-12-23] MEDS: SODIUM CHLORIDE 0.9% IV 1,000 ML 100 ML IV CONT ×2 (00:43→20:40)
[2023-12-23] MEDS: LEVOTHYROXINE SODIUM 88 MCG TABLET PO (06:00)
[2023-12-23 07:42] LABS: Hematocrit 37.3 % (37.0-47.0); Hemoglobin 13.3 g/dL (12.0-15.0); Mean Corpuscular HGB Conc 35.7 g/dl (32-36); Mean Corpuscular Hemoglobin 31.7 pg (26-34); Mean Platelet Volume 11.1 fl (7.4-10.4); Platelet Count Result 337 k/mm3 (150-375); Red Blood Count 4.19 M/mm3 (4.2-5.4); Red Cell Distribution Width 12.4 % (11.5-14.5); White Blood Count 11.5 K/mm3 (4.5-10.0)
[2023-12-23 07:48] LABS: Alanine Aminotransferase 16 U/L (6-35); Albumin Level 3.3 g/dL (3.5-5.1); Alkaline Phosphatase 74 U/L (38-126); Anion Gap 2 mmol/L (4-12); Aspartate Amino Transferase 26 U/L (14-36); Bilirubin,Total 0.9 mg/dL (0.2-1.3); Blood Urea Nitrogen 7 mg/dL (7-17); Calcium 8.3 mg/dL (8.4-10.2); Carbon Dioxide 28 mmol/L (22-30); Chloride 90 mmol/L (98-107); Estimated CRCL calculation 96 ml/min; Estimated Glomerular Filt Rate > 60; Glucose 97 mg/dL (65-110); Magnesium 1.4 mg/dL (1.6-2.3); Potassium 2.7 mmol/L (3.4-5.0); Sodium 120 mmol/L (137-145)
[2023-12-23] MEDS: ARIPiprazole 2 MG TABLET PO (09:28)
[2023-12-23] MEDS: METOPROLOL SUCCINATE EXT REL 25 MG TABCR PO ×2 (09:28→20:39)
[2023-12-23] MEDS: ASPIRIN 81 MG ENTERIC TABLET PO (09:28)
[2023-12-23] MEDS: FLUoxetine HCL 10 MG CAPSULE PO (09:28)
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
[2023-12-23] MEDS: lisinopriL 20 MG TABLET 40 MG PO (09:29)
[2023-12-23] MEDS: ATORVASTATIN 40 MG TABLET PO (09:29)
[2023-12-23] MEDS: FLUoxetine HCL 20 MG CAPSULE PO (09:29)
[2023-12-23] MEDS: levETIRAcetam Tablet 250 MG, levETIRAcetam Tablet 500 MG 750 MG PO ×2 (09:29→20:39)
[2023-12-23] MEDS: ENOXAPARIN 40 MG/0.4 ML SYRINGE SUB-Q (09:29)
[2023-12-23] MEDS: MAGNESIUM OXIDE 400 MG TABLET PO (09:29)
[2023-12-23] MEDS: MAGNESIUM SULF 4 GM/WATER100ML 4 GM/100 ML BAG IVPB (09:30)
[2023-12-23] MEDS: ACETAMINOPHEN 325 MG TABLET 650 MG PO (09:31)
[2023-12-23] MEDS: POTASSIUM CHLORIDE 20 MEQ ER TABLET 40 MEQ PO ×2 (11:59→16:41)
--- NOTE | 2023-12-23 12:45 | PM.CNNEP ---
Assessment and Plan Assessment and plan (1) Hyponatremia: Code(s): E87.1 - Hypo-osmolality and hyponatremia Status: Acute Assessment and Plan: acute decline noted during this hospitalization despite fluid restriction and normal saline IVFs, no real significant improvement risk factors for low sodium: recent CVA SSRI use (fluoxetine) aripiprazole use thyroid disease check TSH, cortisol, SPEP, UPEP, kappa/lambda ratio and urine electrolytes; follow-up on serum/urine osmolality check CXR; MRI of brain already noted check BMP later today -- if no improvement in sodium, will d/c normal saline IVFs consider salt tabs + lasix follow trend of repeat sodium levels (2) Hypokalemia: Code(s): E87.6 - Hypokalemia Status: Acute Assessment and Plan: noted by AM labs as well replace as needed magnesium repleted as well follow trend of K+ levels (3) Left-sided weakness: Code(s): R53.1 - Weakness Status: Acute Assessment and Plan: no acute CVA by brain MRI Neurology following PT/OT as tolerated (4) Hypertension: Code(s): I10 - Essential (primary) hypertension Status: Chronic Assessment and Plan: reasonable control at this time follow trend of hemodynamics I will continue to follow patient with you while she remains hospitalized make further recommendations as deemed necessary. Thank you for allowing me to participate in the care of this patient. History of Present Illness Reason for Consult Consult date: 12/23/23 Reason for consult: hyponatremia Chief Complaint Chief complaint: CVA History of Present Illness Narrative: The patient is a 68-year-old female with a past medical history as outlined below who presented to [facility] for further evaluation of a possible stroke. The patient was apparently found by her family in bed with garbled speech, left-sided weakness and occasional twitching on the left side. given this acute change in her status, her family called EMS and she was subsequently transferred to the emergency room for further assessment. It should be noted that apparently the patient has suffered an ischemic stroke last month with minimal residual left-sided weakness at another institution. By the time of her arrival to the emergency room, her exam was notable for difficulty answering questions, gaze palsy, left upper extremity weakness/drift, dysarthria, aphasia, and partial neglect. Her blood pressure was extremely elevated greater than 200 systolic as well. She received IV labetalol x2 with improvement in her blood pressure. The ER physician spoke with the stroke team at [facility] and it was decided that she was not a candidate for tPA given her previous/ recent ischemic stroke last month. Further imaging included a CTA of the head and neck which that show evidence of stroke and there is no large vessel occlusions noted. She was subsequently transferred to [facility] for further evaluation therapy as well as Neurology consultation. By the time of her arrival to [facility], the majority of her symptoms that she had on presentation to the outside hospital emergency room seem to improve if not resolve and the only major complaint she had at that time was a slight headache. Her left-sided weakness seem to be back to baseline and she denies any other systemic complaints with regard to vertigo, vision changes, facial droop, chest pain, shortness of breath, palpitations, or generalized weakness. Renal consultation was requested due to her acute hyponatremia. On presentation, her sodium level is well within normal limits but subsequent testing since her admission has showed a slow and steady decline in her sodium level each day she has been hospitalized. Her most recent testing shows her sodium down to 120 millimoles per L when on presentation to the outside hospital emergency room, her
[2023-12-23] MEDS: CALCIUM CARBONATE (TUMS) 500 MG (200 MG ELEMENTAL) PO (16:41)
[2023-12-23 18:43] LABS: Lupus dRVVT Screen 32 sec (< OR = 45); PTT-LA Screen 39 sec (< OR = 40)
[2023-12-23] MEDS: ONDANSETRON HCL ODT 4 MG TABLET PO (20:39)
[2023-12-23] MEDS: MELATONIN 5 MG TABLET PO (20:39)
[2023-12-23 21:02] LABS: Eosinophil Urine None Seen % (None Seen); Urine Eos QC 2nd Tech Confirmed
[2023-12-23 21:07] LABS: Creatinine Urine 41.3 mg/dL; Total Protein Urine Random 22 mg/dL; Ur Ttl Prot Creatinine Ratio 0.53 mg/mg (0-0.20); Urea Random Urine 339 MG/DL
[2023-12-23 21:08] LABS: Sodium Urine Random 73 meq/L
[2023-12-23 22:28] LABS: Anion Gap 2 mmol/L (4-12); Blood Urea Nitrogen 8 mg/dL (7-17); Calcium 8.2 mg/dL (8.4-10.2); Carbon Dioxide 28 mmol/L (22-30); Chloride 91 mmol/L (98-107); Estimated CRCL calculation 79 ml/min; Estimated Glomerular Filt Rate > 60; Glucose 126 mg/dL (65-110); Potassium 3.1 mmol/L (3.4-5.0); Sodium 121 mmol/L (137-145)
--- NOTE | 2023-12-23 22:52 | PC.NURSE ---
2560 CALLED SODIUM LEVEL OF [address] CORONADO PER HIS ORDER. NO ANSEWER MESSAGE LEFT
[2023-12-24] VITALS (11 sets, daily range): BP systolic 136–163; BP diastolic 70–84; PULSE 52–65; RESP 16–20; TEMP 36.8–37.1; O2SAT 98–99
[2023-12-24 03:41] LABS: Free T4 Free Thyroxine Reflex 1.26 ng/dL (0.78-2.19)
[2023-12-24 05:02] LABS: Hematocrit 37.4 % (37.0-47.0); Hemoglobin 13.2 g/dL (12.0-15.0); Mean Corpuscular HGB Conc 35.3 g/dl (32-36); Mean Corpuscular Hemoglobin 31.4 pg (26-34); Mean Corpuscular Volume 88.8 fl (80-100); Mean Platelet Volume 10.7 fl (7.4-10.4); Platelet Count Result 322 k/mm3 (150-375); Red Blood Count 4.21 M/mm3 (4.2-5.4); Red Cell Distribution Width 12.8 % (11.5-14.5); White Blood Count 8.8 K/mm3 (4.5-10.0)
[2023-12-24 05:12] LABS: Magnesium 1.8 mg/dL (1.6-2.3)
[2023-12-24 05:17] LABS: Alanine Aminotransferase 15 U/L (6-35); Albumin Level 3.4 g/dL (3.5-5.1); Alkaline Phosphatase 80 U/L (38-126); Anion Gap 6 mmol/L (4-12); Aspartate Amino Transferase 22 U/L (14-36); Bilirubin,Total 0.7 mg/dL (0.2-1.3); Blood Urea Nitrogen 8 mg/dL (7-17); Calcium 8.5 mg/dL (8.4-10.2); Carbon Dioxide 24 mmol/L (22-30); Chloride 93 mmol/L (98-107); Estimated CRCL calculation 79 ml/min; Estimated Glomerular Filt Rate > 60; Glucose 109 mg/dL (65-110); Potassium 3.2 mmol/L (3.4-5.0); Sodium 123 mmol/L (137-145)
[2023-12-24] MEDS: LEVOTHYROXINE SODIUM 88 MCG TABLET PO (06:18)
[2023-12-24] MEDS: MAGNESIUM OXIDE 400 MG TABLET PO (08:15)
[2023-12-24] MEDS: ATORVASTATIN 40 MG TABLET PO (08:15)
[2023-12-24] MEDS: FLUoxetine HCL 10 MG CAPSULE PO (08:15)
[2023-12-24] MEDS: ASPIRIN 81 MG ENTERIC TABLET PO (08:15)
[2023-12-24] MEDS: POTASSIUM CHLORIDE 20 MEQ ER TABLET 40 MEQ PO ×2 (08:15→11:52)
[2023-12-24] MEDS: ARIPiprazole 2 MG TABLET PO (08:15)
[2023-12-24] MEDS: SODIUM CHLORIDE 1 GM TABLET PO ×2 (08:15→16:32)
[2023-12-24] MEDS: lisinopriL 20 MG TABLET 40 MG PO (08:15)
[2023-12-24] MEDS: levETIRAcetam Tablet 250 MG, levETIRAcetam Tablet 500 MG 750 MG PO ×2 (08:16→21:51)
[2023-12-24] MEDS: FLUoxetine HCL 20 MG CAPSULE PO (08:16)
[2023-12-24] MEDS: FUROSEMIDE 10 MG TABLET PO ×2 (08:17→16:32)
[2023-12-24] MEDS: ENOXAPARIN 40 MG/0.4 ML SYRINGE SUB-Q (08:17)
[2023-12-24] MEDS: METOPROLOL SUCCINATE EXT REL 25 MG TABCR PO ×2 (08:34→21:52)
--- NOTE | 2023-12-24 09:27 | PCNFU ---
Addendum entered by Jocelin Nevarez, SINAN, LDN 12/24/23 09:37: Follow up in 5 days Original Note: Nutrition Follow-Up Complete: Inadequate oral intake related to loss of appetite as evidenced by poor intakes 0-10% Improve PO intake to at least 50% meals and supplements by next follow up - Goal is being met overall. Intakes 10-100% Goal: Pt current nutrition is Heart healthy diet, fluid restriction 1500 ml/day. Ensure Compact BID for additional 220 kcal and 9 g protein each. Nutrition recommendation: No new nutrition recommendations. Continue with current nutrition care plan and orders. Agree with orders. Last recorded weight is 57.2 kg. Bowel Motility: +1 BM 12/23/23 Labs Reviewed: Alb 3.4, Na 123, Cre 0.5 Meds Noted: Compazine, Zofran, Mag-ox, potassium chloride Skin: No skin issues Additional Notes: Intakes improving. Fluid restriction for hyponatremia. Continue with current care plans. Monitoring intakes, weights, labs, supplement tolerance, plan of care Follow up in 3 days
--- NOTE | 2023-12-24 09:51 | WPDNEUROPN ---
Progress Note: A&P Assessment and Plan (1) Seizure-like activity: Code(s): R56.9 - Unspecified convulsions Status: Acute (2) History of stroke: Code(s): Z86.73 - Personal history of transient ischemic attack (TIA), and cerebral infarction without residual deficits Status: Acute Plan Ms. Alberto is a 68 year old female with a recent stroke presenting due to concern for seizure. MRI brain from this admission was negative for new or worsening stroke. She has not had any additional seizures since admission. - Continue Aspirin 81mg daily - Continue Lipitor 40mg daily - Continue Keppra 750mg BID - No driving or operating heavy machinery until seizure free for at least six months - Will need outpatient follow-up with Neurology Subjective Date/time seen: 12/24/23 09:51 Interval history: Ms. Alberto is a 68 year old female with a history of recent ischemic stroke a month ago with residual L sided weakness presenting to due to concerns for stroke vs seizure. On the day of presentation, patient was found by her family in position in bed with garbled speech and twitching of the L side. Patient presented to [facility] ED where her NIH score was 11. BP was elevated to 224/101. ED physician spoke with stroke team at [facility] and patient was deemed not a candidate for tPA given recent ischemic stroke. CTA brain/carotid was unrevealing. MRI brain did not show any evidence of acute or subacute stroke. Due to concern for seizure, patient's Keppra was increased to 750mg BID. She has not had any additional seizures since admission. She has been put on aspirin 81mg daily and atorvastatin 40mg daily. Her most recent LDL is 61. Patient's seizure history is unclear. It appears that she does have a prior history of seizure considering her home medication lists Keppra 500mg BID. On talking further with patient and daughter -- patient had a brain bleed about two years ago. It sounds like she started having seizures around that time, which is why she take Keppra. Daughter reports patient had a stroke last week, for which she was evaluated and told she had a stroke. However, MRI brain from this admission does not show any evidence of subacute or old stroke. Patient was previously living in [place], and recently moved to [place] to be with family. Review of Systems Review of Systems: All systems reviewed & are unremarkable except as noted in HPI and below Exam Const: General: comfortable and no acute distress HENMT: Mouth: Yes moist mucous membranes Eyes: Pupils: Equal, round and reactive pupils present EOM: EOMs intact bilaterally Resp: Effort & Inspection: normal respiratory effort Skin: General skin exam: normal color Neuro: Other: Pupils equal and reactive bilaterally, EOMI, face symmetric, facial sensation intact, tongue protrudes midline, palate midline. Shoulder shrug normal. Strength 5/5 throughout. Sensation intact throughout. FNF normal bilaterally. Language comprehension and fluency intact. Gait deferred. Extrem: General: normal to inspection Psych: Mental Status: mental status grossly normal Affect: Sad affect present Objective Data Vital Signs Vital Signs: Vital Signs - 24 hr 12/23/23 12:00 12/23/23 16:36 12/23/23 12:00 Temperature 36.9 C 36.7 C Pulse Rate 59 L 64 62 Respiratory Rate 16 18 Blood Pressure 155/80 H 166/76 H Pulse Oximetry 98 98 Oxygen Delivery 12/23/23 16:00 12/23/23 19:22 12/23/23 20:39 Temperature 36.9 C Pulse Rate 68 62 65 Respiratory Rate 18 Blood Pressure 157/81 H Pulse Oximetry 97 Oxygen Delivery 12/23/23 20:00 12/24/23 00:00 12/23/23 20:00 Temperature 36.8 C Pulse Rate 60 61 Respiratory Rate 18 Blood Pressure 139/84 Pulse Oximetry 98 Oxygen Delivery Room Air 12/24/23 00:00 12/24/23 04:00 12/24/23 04:00 Temperature 36.8 C Pulse Rate 62 53 L 52 L Respiratory Rate 18 Blood Pressure 152/74 H Pulse Oximetry
[2023-12-24 11:24] LABS: Anion Gap 7 mmol/L (4-12); Blood Urea Nitrogen 10 mg/dL (7-17); Carbon Dioxide 24 mmol/L (22-30); Chloride 95 mmol/L (98-107); Estimated CRCL calculation 79 ml/min; Estimated Glomerular Filt Rate > 60; Glucose 98 mg/dL (65-110); Sodium 126 mmol/L (137-145)
[2023-12-24] MEDS: LORazepam (*CRX) 0.5 MG TABLET PO (12:58)
--- NOTE | 2023-12-24 13:01 | P.PNNP_ITS ---
Progress Note: A&P Assessment and Plan (1) Hyponatremia: Code(s): E87.1 - Hypo-osmolality and hyponatremia Status: Acute Assessment and Plan: * acute decline noted during this hospitalization * despite fluid restriction and normal saline IVFs, no real significant improvement * risk factors for low sodium: * recent CVA * SSRI use (fluoxetine) * aripiprazole use * thyroid disease * evaluation to date noted: * TSH, T3 and T4 results noted * cortisol okay * CXR clear * MRI of brain noted * urine electrolytes non-prerenal * SPEP, UPEP, serum/urine immunofixation, and serum/urine osmolality pending * remains on fluid restriction, salt tabs, and lasix * follow trend of repeat sodium levels (2) Hypokalemia: Code(s): E87.6 - Hypokalemia Status: Acute Assessment and Plan: * as noted * replace as needed * magnesium repleted as well * follow trend of K+ levels (3) Left-sided weakness: Code(s): R53.1 - Weakness Status: Acute Assessment and Plan: * no acute CVA by brain MRI * Neurology following * PT/OT as tolerated (4) Hypertension: Code(s): I10 - Essential (primary) hypertension Status: Chronic Assessment and Plan: * reasonable control at this time * follow trend of hemodynamics Would not be opposed to discharge if sodium level continues to improve -- will likely need to continue salt tabs + lasix along with fluid restriction on discharge; based on outpatient repeat labs, hopefully these medications/interventions can be weaned off. Will continue to follow. Subjective Date/time seen: 12/24/23 13:01 Interval history: Follow-up for acute hyponatremia (presumably acute). Appears to be doing doing reasonably well at the time of my visit; no apparent distress noted; stable mentation noted; sodium level seems to be improving with fluid restriction and use of salt tabs with lasix; daughter at bedside and we discussed the situation. Exam Narrative: General: elderly but WD/WN female in NAD Heart: normal S1 and S2; no rub Lungs: clear to auscultation Abdomen: soft, nontender, nondistended, positive bowel sounds Extremities: no cyanosis or clubbing; no edema Skin: warm and dry Objective Data Vital Signs Vital Signs: Vital Signs Temp Pulse Resp BP Pulse Ox O2 Del Method 12/24/23 13:00 64 12/24/23 11:07 98.8 F 61 16 163/80 H 99 12/24/23 08:34 60 12/24/23 04:00 98.3 F 52 L 18 152/74 H 99 12/24/23 04:00 53 L 12/24/23 00:00 62 12/23/23 20:00 61 12/24/23 00:00 98.3 F 60 18 139/84 98 12/23/23 20:00 Room Air 12/23/23 20:39 65 12/23/23 19:22 98.4 F 62 18 157/81 H 97 Intake/Output Intake/Output: Intake & Output 12/21/23 12/22/23 12/23/23 12/24/23 23:59 23:59 23:59 23:59 Intake Total 3160 1838 1630 570 Output Total 2200 601 300 Balance 960 1237 1330 570 Meds/Results Medications: Active Medications Generic Name Dose Route Start Last Admin Trade Name Mraitza PRN Reason Stop Dose Admin Acetaminophen 650 mg 12/19/23 13:14 12/23/23 0
--- NOTE | 2023-12-24 13:01 | PM.PNNEP ---
Progress Note: A&P Assessment and Plan (1) Hyponatremia: Code(s): E87.1 - Hypo-osmolality and hyponatremia Status: Acute Assessment and Plan: acute decline noted during this hospitalization despite fluid restriction and normal saline IVFs, no real significant improvement risk factors for low sodium: recent CVA SSRI use (fluoxetine) aripiprazole use thyroid disease evaluation to date noted: TSH, T3 and T4 results noted cortisol okay CXR clear MRI of brain noted urine electrolytes non-prerenal SPEP, UPEP, serum/urine immunofixation, and serum/urine osmolality pending remains on fluid restriction, salt tabs, and lasix follow trend of repeat sodium levels (2) Hypokalemia: Code(s): E87.6 - Hypokalemia Status: Acute Assessment and Plan: as noted replace as needed magnesium repleted as well follow trend of K+ levels (3) Left-sided weakness: Code(s): R53.1 - Weakness Status: Acute Assessment and Plan: no acute CVA by brain MRI Neurology following PT/OT as tolerated (4) Hypertension: Code(s): I10 - Essential (primary) hypertension Status: Chronic Assessment and Plan: reasonable control at this time follow trend of hemodynamics Would not be opposed to discharge if sodium level continues to improve -- will likely need to continue salt tabs + lasix along with fluid restriction on discharge; based on outpatient repeat labs, hopefully these medications/interventions can be weaned off. Will continue to follow. Subjective Date/time seen: 12/24/23 13:01 Interval history: Follow-up for acute hyponatremia (presumably acute). Appears to be doing doing reasonably well at the time of my visit; no apparent distress noted; stable mentation noted; sodium level seems to be improving with fluid restriction and use of salt tabs with lasix; daughter at bedside and we discussed the situation. Exam Narrative: General: elderly but WD/WN female in NAD Heart: normal S1 and S2; no rub Lungs: clear to auscultation Abdomen: soft, nontender, nondistended, positive bowel sounds Extremities: no cyanosis or clubbing; no edema Skin: warm and dry Objective Data Vital Signs Vital Signs: Vital Signs Temp Pulse Resp BP Pulse Ox O2 Del Method 12/24/23 13:00 64 12/24/23 11:07 98.8 F 61 16 163/80 H 99 12/24/23 08:34 60 12/24/23 04:00 98.3 F 52 L 18 152/74 H 99 12/24/23 04:00 53 L 12/24/23 00:00 62 12/23/23 20:00 61 12/24/23 00:00 98.3 F 60 18 139/84 98 12/23/23 20:00 Room Air 12/23/23 20:39 65 12/23/23 19:22 98.4 F 62 18 157/81 H 97 Intake/Output Intake/Output: Intake & Output 12/21/23 12/22/23 12/23/23 12/24/23 23:59 23:59 23:59 23:59 Intake Total 3160 1838 1630 570 Output Total 2200 601 300 Balance 960 1237 1330 570 Meds/Results Medications: Active Medications Generic Name Dose Route Start Last Admin Trade Name Freq PRN Reason Stop Dose Admin Acetaminophen 650 mg 12/19/23 13:14 12/23/23 09:31 Acetaminophen 325 Mg Tablet PO 650 mg Q4H PRN Administration Mild Pain (1-3) or Fever Aripiprazole 2 mg 12/19/23 16:00 12/24/23 08:15 Aripiprazole 2 Mg Tablet PO 2 mg DAILY DARCY Administration Aspirin 81 mg 12/20/23 09:00 12/24/23 08:15 Aspirin 81 Mg Enteric Tablet PO 81 mg QAM DARCY Administration Atorvastatin Calcium 40 mg 12/19/23 16:00 12/24/23 08:15 Atorvastatin 40 Mg Tablet PO 40 mg DAILY DARCY Administration Calcium Carbonate 200 mg 12/21/23 16:28 12/23/23 16:41 Calcium Carbonate (Tums) 500 Mg (200 Mg Elemental) PO 200 mg Q6H PRN Administration Indigestion Enoxaparin Sodium 40 mg 12/23/23 09:00 12/24/23 08:17 Enoxaparin 40 Mg/0.4 Ml Syringe SUB-Q 40 mg DAILY DARCY Administration Fluoxetine HCl 10 mg 12/19/23 14:00 12/24/23 08:15
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
[2023-12-24] MEDS: POTASSIUM CHLORIDE 20 MEQ ER TABLET 60 MEQ PO (16:32)
[2023-12-24 21:43] LABS: Anion Gap 5 mmol/L (4-12); Blood Urea Nitrogen 14 mg/dL (7-17); Calcium 8.6 mg/dL (8.4-10.2); Carbon Dioxide 26 mmol/L (22-30); Chloride 97 mmol/L (98-107); Estimated CRCL calculation 58 ml/min; Estimated Glomerular Filt Rate > 60; Glucose 90 mg/dL (65-110); Potassium 3.6 mmol/L (3.4-5.0); Sodium 128 mmol/L (137-145)
[2023-12-24] MEDS: MELATONIN 5 MG TABLET PO (21:51)
[2023-12-25] VITALS: BP 147/72; PULSE 59; PULSE 61; RESP 18; TEMP 36.4; O2SAT 97
[2023-12-25 01:58] LABS: Protein, Total 5.2 g/dL (6.1-8.1)
[2023-12-25 04:00] VITALS: BP 153/78; PULSE 56; PULSE 64; RESP 18; TEMP 36.5; O2SAT 99
[2023-12-25 04:52] LABS: Hematocrit 37.9 % (37.0-47.0); Hemoglobin 12.9 g/dL (12.0-15.0); Mean Corpuscular Hemoglobin 30.8 pg (26-34); Mean Corpuscular Volume 90.5 fl (80-100); Mean Platelet Volume 10.9 fl (7.4-10.4); Platelet Count Result 326 k/mm3 (150-375); Red Blood Count 4.19 M/mm3 (4.2-5.4); Red Cell Distribution Width 12.8 % (11.5-14.5); White Blood Count 8.1 K/mm3 (4.5-10.0)
[2023-12-25 05:04] LABS: Alanine Aminotransferase 15 U/L (6-35); Albumin Level 3.4 g/dL (3.5-5.1); Alkaline Phosphatase 74 U/L (38-126); Anion Gap 5 mmol/L (4-12); Aspartate Amino Transferase 22 U/L (14-36); Bilirubin,Total 0.5 mg/dL (0.2-1.3); Blood Urea Nitrogen 13 mg/dL (7-17); Calcium 8.9 mg/dL (8.4-10.2); Carbon Dioxide 26 mmol/L (22-30); Chloride 97 mmol/L (98-107); Estimated CRCL calculation 58 ml/min; Estimated Glomerular Filt Rate > 60; Glucose 90 mg/dL (65-110); Potassium 3.6 mmol/L (3.4-5.0); Sodium 128 mmol/L (137-145)
[2023-12-25] MEDS: LEVOTHYROXINE SODIUM 88 MCG TABLET PO (05:33)
[2023-12-25 07:45] VITALS: BP 167/76; PULSE 54; RESP 16; TEMP 36.5; O2SAT 98
[2023-12-25 08:00] VITALS: PULSE 61
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
[2023-12-25] MEDS: ASPIRIN 81 MG ENTERIC TABLET PO (08:28)
[2023-12-25] MEDS: ARIPiprazole 2 MG TABLET PO (08:28)
[2023-12-25] MEDS: ENOXAPARIN 40 MG/0.4 ML SYRINGE SUB-Q (08:29)
[2023-12-25] MEDS: FLUoxetine HCL 20 MG CAPSULE PO (08:29)
[2023-12-25] MEDS: ATORVASTATIN 40 MG TABLET PO (08:29)
[2023-12-25] MEDS: FLUoxetine HCL 10 MG CAPSULE PO (08:30)
[2023-12-25] MEDS: FUROSEMIDE 10 MG TABLET PO (08:30)
[2023-12-25] MEDS: levETIRAcetam Tablet 250 MG, levETIRAcetam Tablet 500 MG 750 MG PO (08:30)
[2023-12-25] MEDS: lisinopriL 20 MG TABLET 40 MG PO (08:30)
[2023-12-25] MEDS: MAGNESIUM OXIDE 400 MG TABLET PO (08:31)
[2023-12-25] MEDS: SODIUM CHLORIDE 1 GM TABLET PO (08:31)
[2023-12-25] MEDS: METOPROLOL SUCCINATE EXT REL 25 MG TABCR PO (08:31)
--- NOTE | 2023-12-25 08:46 | PCPTNOTE ---
Attempted to see aptient for PT, however patient declined. Patient reported she needed a little time after eating breakfast before working with therapy.
[2023-12-25 12:19] LABS: Kappa\\Lambda Light Chains 1.32 (0.26-1.65); Lambda Light Chain 12.4 mg/L (5.7-26.3)
[2023-12-25 15:39] LABS: Osmolality, Urine 261 mOsm/kg (50-1200)
[2023-12-25 16:03] LABS: Albumin 2.9 g/dL (3.8-4.8); Alpha 1 Globulin 0.3 g/dL (0.2-0.3); Alpha 2 Globulin 0.7 g/dL (0.5-0.9); Beta 1 Globulin 0.3 g/dL (0.4-0.6); Gamma Globulin 0.7 g/dL (0.8-1.7)
[2023-12-28 01:45] LABS: Anti Cardio Antibody IgM <2.0 MPL-U/mL; Anti Cardiolipin Antibody IgA <2.0 APL-U/mL; Anti Cardiolipin Antibody IgG <2.0 GPL-U/mL
[2023-12-28 14:49] LABS: Creatinine, Random Urine 43 mg/dL (20-275); Total Protein/Creatinine Ratio 302 mg/g creat (24-184)
[2023-12-28 19:43] LABS: PS/PT AB IgG <9 U (< OR = 30); PS/PT AB IgM <9 U (< OR = 30)
[2023-12-29 13:48] LABS: Immunofixation, Serum Normal pattern.
== END 2023-12-25 11:35 | disposition home health service (06) | DRG 57 ==
PROVIDERS: Internal Medicine; Internal Medicine Nephrology; Nurse Practitioner; Physician Assistant; Student in an Organized Health Care Education/Training Program; Admitting Provider Internal Medicine; Visit Provider Nurse Practitioner
DX: I69.198 Other sequelae of nontraumatic intracerebral hemorrhage (principal); I69.354 Hemiplegia and hemiparesis following cerebral infarction affecting left non-dominant side; E87.1 Hypo-osmolality and hyponatremia; G40.909 Epilepsy, unspecified, not intractable, without status epilepticus; I10 Essential (primary) hypertension; R73.9 Hyperglycemia, unspecified; D72.829 Elevated white blood cell count, unspecified; E87.6 Hypokalemia; F32.A Depression, unspecified; E03.9 Hypothyroidism, unspecified; Z91.414 Personal history of adult intimate partner abuse
CPT/HCPCS: 36415; 70551; 71045; 73552; 73560; 73590; 80048; 80053; 80061; 81050; 82533; 82570; 82607; 82746; 82784; 82948; 83036; 83735; 83883; 83930; 83935; 84100; 84132; 84155; 84156; 84165; 84166; 84300; 84439; 84443; 84480; 84540; 85025; 85027; 85613; 85730; 85999; 86146; 86334; 86335; 92507; 92523; 96125; 97110; 97162; 97165; 97530; 97535; A9270; J0360; J1650; J2405; J3475; J3480; J7030; J7040

== ENCOUNTER 2024-04-15 13:15 | Emergency (ER) | payer MEDICARE, SELFPAY ==
[2024-04-15] VITALS (8 sets, daily range): BP systolic 153–204; BP diastolic 85–185; PULSE 69–87; RESP 12–20; TEMP 36.2; O2SAT 95–99
--- NOTE | ~2024-04-15 | XR_ITS ---
EXAMINATION: XR chest 1V portable DATE: 04/15/2024 14:28 INDICATION: Left-sided weakness TECHNIQUE: frontal view of the chest was obtained. COMPARISON: Chest radiograph dated 12/24/2023 FINDINGS: Chronic moderate biapical pleural-parenchymal scarring. Calcified nodule in the left midlung zone con sistent with old granulomatous disease. No new airspace opacities, pulmonary edema, pleural effusion or pneumothorax. The cardiomediastinal silhouette is normal. IMPRESSION: 1. Chronic biapical pleural-parenchymal scarring. No acute cardiopulmonary disease. Reviewed, dictated and finalized at location A. IMPRESSION: 1. Chronic biapical pleural-parenchymal scarring. No acute cardiopulmonary dise ase.
--- NOTE | ~2024-04-15 | CT_ITS ---
CTA brain carotid Ordering provider: Corbin Paul MD History: . CVA . Comparison: None. Technique: CT angiogram head and neck was performed following timed intravenous injection of contrast . Thin slice axial images and reformatted coronal images were obtained. Three dimensional reformatted images of the brain were also obtained using a [employer] workstation. Radiation reduction technique ut ilized.The dose-length product was 1600.96 mGy-cm FINDINGS: HEAD: --ANTERIOR AND MIDDLE CEREBRAL ARTERIES AND BRANCHES: Normal caliber and contour. --INTERNAL CAROTID ARTERIES: Mild atheromatous disease but no significant stenosis. No occlusion. --BASILAR ARTERY AND BRANCHES: Normal caliber and contour. No atheromatous disease. --POSTERIOR CEREBRAL ARTERIES: Normal caliber and contour --POSTERIOR COMMUNICATING ARTERIES: The right is demonstrated and continues as posterior cerebral art manasa. 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 --ANEURYSM: None visualized. --BRAIN: Mild brain atrophy with deep white matter ischemic changes. No evidence of acute hemorrhage or infarct seen. --BONES AND SUPERFICIAL SOFT TISSUES: Normal.. --PARANASAL SINUSES AND MASTOIDS: Normal. NECK: --RIGHT CERVICAL CAROTID SYSTEM: Mild atheromatous disease of the carotid bulb and proximal internal carotid artery without significant stenosis. Percent stenosis per NASCET criteria is 0%. No carotid dissection. Otherwise, no significant atheromatous disease or stenosis of the cervical carotid system . --LEFT CERVICAL CAROTID SYSTEM: Mild atheromatous disease of the carotid bulb and proximal internal c arotid artery without significant stenosis. Percent stenosis per NASCET criteria is 0%. No carotid d issection. Otherwise, no significant atheromatous disease or stenosis of the cervical carotid system. --VERTEBRAL ARTERIES: Normal caliber and contour. --VISUALIZED AORTIC ARCH AND BRANCHING VESSELS: Mild atheromatous disease but no significant stenosis . Ascending aorta measures 3.9 CNM. --SOFT TISSUES: Normal. --CERVICAL SPINE: Age appropriate degenerative changes. IMPRESSION: 1. Normal CTA head and neck. Percent stenosis per NASCET criteria is 0%. Reviewed, dictated and finalized at location A.
[2024-04-15 13:31] LABS: Estimated Glomerular Filt Rate > 60
[2024-04-15] MEDS: levETIRAcetam 1000MG/NACL100ML 1,000 MG/100 ML BAG 400 MG IVPB (13:47)
[2024-04-15 13:58] LABS: Basophils Percent Auto 0.4 % (0.2-1.2); Eosinophils Absolute Auto 0.2 K/mm3 (0-0.3); Eosinophils Percent Auto 1.5 % (0-4.4); Hematocrit 39.5 % (37.0-47.0); Hemoglobin 12.7 g/dL (12.0-15.0); Immature Granulocyte Absolute 0.06 K/mm3 (0.00-0.031); Immature Granulocyte Percent A 0.6 % (0-0.5); Lymphocytes Absolute Auto 3.81 K/mm3 (0.9-3.2); Lymphocytes Percent Auto 38.8 % (18.3-44.2); Mean Corpuscular HGB Conc 32.2 g/dl (32-36); Mean Corpuscular Hemoglobin 30.8 pg (26-34); Mean Corpuscular Volume 95.9 fl (80-100); Mean Platelet Volume 9.9 fl (7.4-10.4); Monocytes Absolute Auto 0.6 K/mm3 (0.1-0.6); Monocytes Percent Auto 5.7 % (2.6-8.5); Neutrophils Absolute Auto 5.2 K/mm3 (1.3-6.7); Platelet Count Result 314 k/mm3 (150-375); Red Blood Count 4.12 M/mm3 (4.2-5.4); Red Cell Distribution Width 14.5 % (11.5-14.5); White Blood Count 9.8 K/mm3 (4.5-10.0)
[2024-04-15 14:08] LABS: Creatine Kinase 55 U/L (30-135); INR 1.1; Magnesium 1.6 mg/dL (1.6-2.3); Prothrombin Time 14.4 Seconds (11.1-14.7)
[2024-04-15 14:09] LABS: Ethanol < 10 mg/dL (<10); Partial Thromboplastin Time 27.6 Seconds (22.3-36.8)
[2024-04-15 14:10] LABS: Alanine Aminotransferase 18 U/L (6-35); Albumin Level 3.7 g/dL (3.5-5.1); Alkaline Phosphatase 96 U/L (38-126); Anion Gap 10 mmol/L (4-12); Aspartate Amino Transferase 38 U/L (14-36); Bilirubin,Total 0.7 mg/dL (0.2-1.3); Blood Urea Nitrogen 8 mg/dL (7-17); Calcium 8.9 mg/dL (8.4-10.2); Carbon Dioxide 27 mmol/L (22-30); Chloride 94 mmol/L (98-107); Estimated Glomerular Filt Rate > 60; Glucose 127 mg/dL (65-110); Lactic Acid Reflex 2.1 mmol/L (0.7-2.0); Potassium 3.3 mmol/L (3.4-5.0); Sodium 131 mmol/L (137-145)
[2024-04-15] MEDS: LORazepam INJ (*CRX) 2 MG/ML VIAL 1 MG IV PUSH (14:10)
--- NOTE | 2024-04-15 14:10 | ECG_ITS ---
Test Date: 2024-04-15 14:10:24 Measurements Intervals [place] Rate: 75 P: 64 CT: 174 QRS: 16 QRSD: 110 T: 51 QT: 449 QTc: 505 Interpretive Statements SINUS RHYTHM INCOMPLETE RIGHT BUNDLE BRANCH BLOCK BORDERLINE ST-T WAVE ABNORMALITY- ANTEROLATERAL LEADS PROLONGED QT INTERVAL BASELINE WANDER- V3-V5 ABNORMAL ECG Compared to ECG 12/19/2023 05:10:43 Prolonged QT interval now present Electronically Signed On 04-15-2024 14:24:18 CDT by José Miguel Noble D.O.
--- NOTE | 2024-04-15 14:15 | PC.NURSE ---
Patient was having seizure like activity upon this RN's arrival to room. ED MD at bedside for reevaluation. Received verbal order for 1mg ativan IV. See SEP.
--- NOTE | 2024-04-15 14:20 | ED.NEUROSD ---
HPI - Neuro Symptoms/Deficit General Chief Complaint: Suspected CVA Stated Complaint: cva Source: patient, family and EMS Mode of arrival: EMS Limitations: no limitations History of Present Illness HPI Narrative: This is a 68-year-old female, with history of multiple strokes (most recently 2 years ago lows) with residual left-sided weakness, brought in by EMS from home with left-sided arm and leg weakness. Last known well yesterday evening at approximately 20:00. Per EMS, family at the scene noted that ?the patient was not acting right this morning? she had left-sided weakness an some slurred speech. The patient's family also reportedly noticed rhythmic jerking in the left upper and lower arms. The patient denies any other symptoms. She has no other complaints at this time. Related Data Allergies Allergy/AdvReac Type Severity Reaction Status Date / Time No Known Allergies Allergy Verified 04/15/24 13:38 Review of Systems Review of Systems: All systems reviewed & are unremarkable except as noted in HPI and below PMFSH Past Medical History Medical History Arthritis Hypertension Ischemic stroke Seizure disorder Social History Social History Social History: Surrogate medical decision maker: Imani Penn, daughter. Code status: Full code. Smoking status: Never smoker Alcohol intake: former Substance use: former Substance use type: does not use Last use: 7 months ago Do You Feel Safe in your Home?: Yes Lack of Transportation: No Lack of Food: Never True Current Housing: I Have Housing Concerned About Future Housing: No Difficulty Paying Gas/Electric Bills: No Difficulty Paying for Meds: No Currently Unemployed: No Education: High School Diploma/GED Difficulty w/ Childcare or Family Care: No Spiritual care concerns: No Exam Narrative: GENERAL: Well-developed, well-nourished, in moderate distress with rhythmic shaking of the left upper and lower extremity HEAD: Normocephalic, atraumatic. EYES: PERRLA and EOMI. Left-sided gaze preference CHEST: Clear to auscultation. No respiratory distress. No wheezes rales or rhonchi HEART: Regular rate and rhythm. No murmur heard. Normal peripheral pulses. ABDOMEN: Soft, nontender, nondistended, normal active bowel sounds. EXTREMITIES: Normal range of motion. No edema. SKIN: Warm, dry, no rash. NEURO: Alert and oriented x3. Strength 1/5 in the left upper extremity, and 0/5 in the left lower extremity, 5/5 in the right upper extremity and 5/5 in the right lower extremity. Mild right-sided facial droop noted. Diminished sensation on the left. Mild slurred speech. No noted visual field defect. Persistent rhythmic contractions of the left upper extremity, left lower extremity PSYCH: Normal mood and affect. Course Course Emergency Course: 13:27 - NIHSS 10, the patient also demonstrates ongoing seizure-like activity on the left. 14:15 - The patient had a recurrent episode of rhythmic contractions of the left upper and left lower extremity, consistent with recurrent seizure. This lasted approximately 30 seconds and stopped prior to medication administration. She was given 1mg of Ativan IV. 14:32 -CBC unremarkable. Chemistries demonstrate mild hyponatremia with sodium of 131 and hypokalemia with potassium of 3.3, as well as mild hyperglycemia glucose of 127 lactic acid elevation of 2.1. Serum alcohol level negative. CT head noncontrast not concerning for intracranial hemorrhage. CT angiogram not concerning for vascular occlusion or dissection. I suspect status epilepticus with focal seizures as the cause of her symptoms. I discussed the patient with [facility] transfer center. The patient's family request transfer to [facility]. 15:01 - I discussed the patient with [facility] hospitalist, Dr. Issa who accepts transfer. A bed is not
--- NOTE | 2024-04-15 15:22 | PC.NURSE ---
Spoke with Sheela from [facility] transfer center. She states patient has been accepted to [facility], but there are no rooms at this time.
--- NOTE | 2024-04-15 15:30 | PC.NURSE ---
Multiple attempts made by staff to obtain urine sample. Patient was able to urinate x 2 on bedpan, but urine contained by stool. Patient was placed on purewick.
--- NOTE | 2024-04-15 16:13 | PC.NURSE ---
Bed assigned at [facility] 476-Bed 9 [phone] Zapata
--- NOTE | 2024-04-15 16:42 | PC.NURSE ---
1620-PATIENT WEARS GLASSES AND DOES NOT HAVE GLASSES WITH HER. PATIENT SIGNED CONSENT FOR TRANSFER BY [facility] WITH AN X . X SIGNATURE WITNESSED BY TWO RNs. NO FAMILY WITH PATIENT.
--- NOTE | 2024-04-15 16:55 | PC.NURSE ---
Phone report given to Renan HAM at [phone]. Patient assigned to 476 bed [address] Zapata.
[2024-04-15 16:56] LABS: Reflex Lactic Acid Yes or No Add Lactic
[2024-04-15] MEDS: hydrALAZINE HCL 50 MG TABLET PO (17:02)
[2024-04-15] MEDS: MAGNESIUM SULF 1 GM/D5W 100 ML 1 GM/100 ML BAG IVPB (18:33)
--- NOTE | 2024-04-15 18:43 | PC.NURSE ---
1840-PATIENT INCONTINENT OF LARGE AMOUNT OF BROWN LIQUID AND SOLID STOOL. PARTIAL BED BATH/LINEN CHANGE DONE.
== END 2024-04-15 20:12 | disposition short-term general hospital (02) ==
PROVIDERS: Emergency Medicine; Emergency Provider Preventive Medicine Aerospace Medicine
DX: G40.909 Epilepsy, unspecified, not intractable, without status epilepticus (principal); E87.6 Hypokalemia; R94.31 Abnormal electrocardiogram [ECG] [EKG]; I10 Essential (primary) hypertension; I69.354 Hemiplegia and hemiparesis following cerebral infarction affecting left non-dominant side; M19.90 Unspecified osteoarthritis, unspecified site; Z79.899 Other long term (current) drug therapy; Z79.82 Long term (current) use of aspirin; I45.10 Unspecified right bundle-branch block
CPT/HCPCS: 36415; 70496; 70498; 71045; 80053; 80307; 82550; 83605; 83735; 85025; 85610; 85730; 93005; 96365; 96366; 96367; 96375; 99285; A9270; J1953; J2060; J3475; Q9967